=== PATIENT | female | born 1995 | race African-American/Black ===

== ENCOUNTER 2016-06-17 17:37 | Emergency (ER) | payer MEDICAID, OTHER ==
[~2016-06-17] VITALS: Ht 162.6 cm; Wt 55.0 kg
[~2016-06-17 17:37] MED LIST: HYDR-3534 PO
[2016-06-17 17:40] VITALS: BP 123/69; PULSE 72; RESP 20; TEMP 98.1; O2SAT 100
[2016-06-17] MEDS ORDERED: CYCLOBENZAPRINE HCL 10 MG TAB PO ONE (19:15)
[2016-06-17] MEDS ORDERED: NAPROXEN 500 MG TAB PO ONE (19:15)
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
[2016-06-17] MEDS ORDERED: NAPR500 PO (19:24)
[2016-06-17] MEDS ORDERED: CYCL1TAB29 PO (19:24)
== END 2016-06-17 19:51 | disposition home or self-care (01) ==
LOC: NEPB 17:37
DX: S16.1XXA Strain of muscle, fascia and tendon at neck level, initial encounter (principal); S39.012A Strain of muscle, fascia and tendon of lower back, initial encounter; G44.309 Post-traumatic headache, unspecified, not intractable; Z87.39 Personal history of other diseases of the musculoskeletal system and connective tissue; V89.2XXA Person injured in unspecified motor-vehicle accident, traffic, initial encounter
CPT/HCPCS: 99283

== ENCOUNTER 2017-01-10 10:41 | Emergency (ER) | payer MEDICAID, OTHER ==
[~2017-01-10] VITALS: Ht 162.6 cm; Wt 50.0 kg
[~2017-01-10 10:41] MED LIST changes: +CYCL1TAB29 PO; -HYDR-3534 PO; +NAPR500 PO
[2017-01-10 10:43] VITALS: BP 146/86; PULSE 91; RESP 26; TEMP 97.9; O2SAT 98
[2017-01-10] MEDS ORDERED: SODIUM CHLOR 0.9% 1000 ML INJ 1,000 ML IV ONE ×2 (12:54→16:00)
[2017-01-10] MEDS ORDERED: SODIUM CHLOR 0.9% 1000 ML INJ 800 ML IV ONE (12:54)
[2017-01-10] MEDS ORDERED: SODIUM CHLORIDE 0.9% FLUSH 10 ML FLUSH IVF PRN (13:00)
[2017-01-10] MEDS ORDERED: ONDANSETRON HCL 4 MG/2 ML VIAL IVP ONE (13:00)
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
[2017-01-10 14:24] LABS: BASOPHIL % 0.2 % (0.0-2.0); EOSINOPHIL % 0.6 % (0.0-4.0); HEMATOCRIT 40.5 % (35.0-46.0); HEMO FLAGS DIFF FINAL; LYMPH % 41.6 % (9.0-44.0); LYMPHOCYTE # 2.4 TH/MM3 (1.0-4.8); MEAN CELL VOLUME 68.2 FL (80.0-100.0); MEAN CORPUSCULAR HEMOGLOBIN 21.4 PG (27.0-34.0); MEAN CORPUSCULAR HGB CONC 31.4 % (32.0-36.0); MONO % 6.2 % (0.0-8.0); NEUT % 51.4 % (16.0-70.0); PLATELET COUNT 262 TH/MM3 (150-450); RED BLOOD COUNT 5.93 MIL/MM3 (4.00-5.30); RED CELL DISTRIBUTION WIDTH 14.5 % (11.6-17.2); WHITE BLOOD COUNT 5.9 TH/MM3 (4.0-11.0)
[2017-01-10 15:50] VITALS: BP_SYST 115; BP_SYST 116; BP_SYST 118; BP_DIAS 53; BP_DIAS 65; BP_DIAS 68; RESP 18; RESP 19
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
[2017-01-10 17:52] LABS: BLOOD, URINE NEG (NEG); COMMENT (UR) CULT NOT INDICATED; CULTURE IF INDICATED CULT NOT INDICATED; GLUCOSE,URINE NEG (NEG); KETONE, URINE NEG (NEG); MUCUS URINE MANY /lpf (OCC); NITRITE,URINE NEG (NEG); PH, URINE 5.5 (5.0-8.5); SQUAMOUS EPITHELIAL CELL URINE 5 /hpf (0-5); URINE COLOR YELLOW (YELLW/STRAW)
[2017-01-10 18:34] LABS: ALT (GPT) 17 U/L (10-53); ANION GAP 8 MEQ/L (5-15); AST (GOT) 14 U/L (15-37); BICARBONATE 21.7 MEQ/L (21.0-32.0); BLOOD UREA NITROGEN 12 MG/DL (7-18); CHLORIDE 113 MEQ/L (98-107); GLOMERULAR FILTRATION RATE 129 ML/MIN (>89); POTASSIUM 3.7 MEQ/L (3.5-5.1); SODIUM (NA) 143 MEQ/L (136-145)
[2017-01-10 18:36] LABS: ALKALINE PHOSPHATASE 47 U/L (45-117); CREATINE KINASE 124 U/L (26-192)
[2017-01-10 18:53] LABS: CKMB LESS THAN 0.5 NG/ML (0.5-3.6)
[2017-01-10] MEDS ORDERED: IBUP-232 PO (19:11)
[2017-01-10] MEDS ORDERED: MAPA500T13 PO (19:11)
[2017-01-10] MEDS ORDERED: ACETAMINOPHEN 325 MG TAB PO ONE (19:15)
[2017-01-10] MEDS ORDERED: IBUPROFEN 600 MG TAB PO ONE (19:15)
[2017-01-10 19:39] VITALS: BP 140/88
== END 2017-01-10 19:58 | disposition home or self-care (01) ==
LOC: NEPC 10:41
DX: R55 Syncope and collapse (principal); X30.XXXA Exposure to excessive natural heat, initial encounter; R94.31 Abnormal electrocardiogram [ECG] [EKG]
CPT/HCPCS: 80053; 81001; 82550; 82552; 83735; 85025; 93005; 96361; 96374; 99284; J2405; J7030

== ENCOUNTER 2017-04-11 18:57 | Emergency (ER) | payer MEDICAID, OTHER ==
[~2017-04-11] VITALS: Ht 162.6 cm; Wt 53.1 kg
[~2017-04-11 18:57] MED LIST changes: +CYCL10TA PO; -CYCL1TAB29 PO; +IBUP-232 PO; +MAPA500T13 PO
[2017-04-11 19:05] VITALS: BP 132/71; PULSE 82; RESP 16; TEMP 98.9; O2SAT 100
[2017-04-11] MEDS ORDERED: SODIUM CHLORIDE 0.9% FLUSH 10 ML FLUSH IV FLUSH PRN (19:30)
[2017-04-11] MEDS ORDERED: FAMOTIDINE 20 MG/2 ML VIAL IV PUSH ONE (19:30)
[2017-04-11] MEDS ORDERED: ALUMINUM/MAGNESIUM/SIMETH 30 ML CUP PO ONE (19:30)
[2017-04-11] MEDS ORDERED: ATROPINE/SCOPOLAM/HYOSCYAM/PB ELIXIR 10 ML CUP PO ONE (19:30)
--- NOTE | 2017-04-11 19:30 | PD ---
HPI Chief Complaint: Abdominal Pain Time Seen by Provider: 19:16 Travel History International Travel<30 days: No Contact w/Intl Traveler<30days: No Traveled to known affect area: No History of Present Illness HPI 21-year-old female complains of abdominal pain. Patient states that the pain started 3 days ago. Patient states the pain is sharp pain burning pain localized around the epigastric upper abdomen. Patient denies any pain radiation. Patient denies nausea vomiting diarrhea. Patient denies dysuria or frequency. Patient denies any vaginal discharge or bleeding. Patient denies any fever chills. Patient states that the pain is not worse with eating. Patient denies any recent intake of NSAIDs. PFSH Past Medical History Autoimmune Disease: Yes (SICKLE CELL TRAITS) Diminished Hearing: No Musculoskeletal: Yes (Muscle spasms,back) Immunizations Current: Yes Influenza Vaccination: No ?: Unknown LMP: 03/01/17 : 0 Past Surgical History Surgical History: No Previous Surgery Social History Alcohol Use: Yes (Occ.) Tobacco Use: No Substance Use: No Allergies-Medications (Allergen,Severity, Reaction): Coded Allergies: No Known Allergies (Unverified Adverse Reaction, Unknown, 04/11/17) Reported Meds & Prescriptions Reported Meds & Active Scripts Active Carafate (Sucralfate) 1 Gram Tab 1 Gm PO QID On empty stomach Protonix (Pantoprazole Sodium) 40 Mg Tab 40 Mg PO DAILY Review of Systems General / Constitutional: No: Fever Eyes: No: Visual changes HENT: No: Headaches Cardiovascular: No: Chest Pain or Discomfort Respiratory: No: Shortness of Breath Gastrointestinal: Positive: Abdominal Pain Genitourinary: No: Dysuria Musculoskeletal: No: Pain Skin: No Rash Neurologic: No: Weakness Psychiatric: No: Depression Endocrine: No: Polydipsia Hematologic/Lymphatic: No: Easy Bruising Physical Exam Narrative GENERAL: Well-nourished, well-developed patient. SKIN: Focused skin assessment warm/dry. HEAD: Normocephalic. EYES: No scleral icterus. No injection or drainage. NECK: Supple, trachea midline. No JVD or lymphadenopathy. CARDIOVASCULAR: Regular rate and rhythm without murmurs, gallops, or rubs. RESPIRATORY: Breath sounds equal bilaterally. No accessory muscle use. GASTROINTESTINAL: Abdomen soft, nondistended. Patient has mild tenderness on palpation epigastric area. No rebound tenderness. No mass. MUSCULOSKELETAL: No cyanosis, or edema. BACK: Nontender without obvious deformity. No CVA tenderness. Neurologic exam normal. Data Data Last Documented VS Vital Signs Date Time Temp Pulse Resp B/P (MAP) Pulse Ox O2 Delivery O2 Flow Rate FiO2 04/11/17 19:35 16 100 Room Air 04/11/17 19:05 98.9 82 132/71 (91) Orders Orders Complete Blood Count With Diff (04/11/17 19:25) Comprehensive Metabolic Panel (04/11/17 19:25) Lipase (04/11/17 19:25) Urinalysis - C+S If Indicated (04/11/17 19:25) Iv Access Insert/Monitor (04/11/17 19:25) Ecg Monitoring (04/11/17:25) Oximetry (04/11/17 19:25) Sodium Chloride 0.9% Flush (Ns Flush) (04/11/17 19:30) Famotidine Inj (Pepcid Inj) (04/11/17 19:30) Ed Urine Pregnancytest Poc (04/11/17 19:25) Al-Mag Hy-Si 40-40-4 Mg/Ml Liq (Mag-Al P (04/11/17 19:30) Wksct-Ugtjja-Onahri-Pb Liq ( Liq (04/11/17 19:30) Urine Culture (04/11/17 20:42) Labs Laboratory Tests Test 04/11/17 19:40 04/11/17 20:42 White Blood Count 5.9 TH/MM3 Red Blood Count 5.49 MIL/MM3 Hemoglobin 11.7 GM/DL Hematocrit 37.8 % Mean Corpuscular Volume 68.9 FL Mean Corpuscular Hemoglobin 21.3 PG Mean Corpuscular Hemoglobin Concent 30.9 % Red Cell Distribution Width 14.1 % Platelet Count 270 TH/MM3 Mean Platelet Volume 8.9 FL Neutrophils (%) (Auto) 49.3 % Lymphocytes (%) (Auto) 38.1 % Monocytes (%) (Auto) 8.0 % Eosinophils (%) (Auto) 3.4 % Basophils (%) (Auto) 1.2 % Neutrophils # (Auto) 2.8 TH/MM3 Lymphocytes # (Auto) 2.3 TH/MM3 Monocytes # (Auto) 0.5 TH/MM3 Eosinophils # (Auto) 0.2 TH/MM3 Basophils # (Auto) 0.1 TH/MM3 CBC Comment AUTO DIFF Differential Comment AUTO DIFF CONFIRMED Platelet Estimate NORMAL Platelet Morphology Comment NORMAL Basophilic Stippling FAINT Ovalocytes 1+ Blood Urea Nitrogen 12 MG/DL Creatinine 0.67 MG/DL Random Glucose 90 MG/DL Total Protein 7.8 GM/DL Albumin 3.9 GM/DL Calcium Level 9.1 MG/DL Alkaline Phosphatase 45 U/L Aspartate Amino Transf (AST/SGOT) 13 U/L Alanine Aminotransferase (ALT/SGPT) 14 U/L Total Bilirubin 0.8 MG/DL Sodium Level 140 MEQ/L Potassium Level 3.8 MEQ/L Chloride Level 108 MEQ/L Carbon Dioxide Level 24.2 MEQ/L Anion Gap 8 MEQ/L Estimat Glomerular Filtration Rate 133 ML/MIN Lipase 270 U/L Urine Color YELLOW Urine Turbidity SLIGHT Urine pH 6.0 Urine Specific [place] 1.026 Urine Protein NEG mg/dL Urine Glucose (UA) NEG mg/dL Urine Ketones NEG mg/dL Urine Occult Blood NEG Urine Nitrite POS Urine Bilirubin NEG Urine Leukocyte Esterase SMALL Urine WBC 9-14 /hpf Urine Squamous Epithelial Cells 6-8 /hpf Urine Bacteria MANY /hpf Urine Mucus MOD /lpf Microscopic Urinalysis Comment CULTURE INDICATED MDM Medical Decision Making Medical Screen Exam Complete: Yes Emergency Medical Condition: Yes Interpretation(s) 2023 PM. CBC within normal limit. MCV 68.9. CMP within normal limit. Urine test positive. UA positive with WBC and bacteria. Differential Diagnosis Differential diagnosis including gastritis, PUD, pancreatitis, cholecystitis, colitis, UTI, pyelonephritis, nephrolithiasis. Narrative Course 21-year-old female with complains of epigastric abdominal pain. Pepcid 20 mg IV given. Maalox 30 cc by mouth given. 10 cc by mouth given. Diagnosis Primary Impression: Gastritis Qualified Codes: K29.00 - Acute gastritis without bleeding Additional Impressions: Qualified Codes: Z3A.01 - Less than 8 weeks gestation of UTI (urinary tract infection) Qualified Codes: N30.00 - Acute cystitis without hematuria Patient Instructions: General Instructions Additional Instructions: Take medications as directed. 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 Return if persistent problem or worse. Follow-up with OB/ MEDICAL AIDE physician. Take vitamins as directed. Med/Other Pt SpecificInfo: Prescription(s) given Scripts Nitrofurantoin Monohydrate Macrocrystals (Macrobid) 100 Mg Cap 100 MG PO BID for Infection, #14 CAP 0 Refills Prov: Bethel Sun MD 04/11/17 Sucralfate (Carafate) 1 Gram Tab 1 GM PO QID for Ulcer Prevention, #120 TAB 0 Refills On empty stomach Prov: Bethel Sun MD 04/11/17 Pantoprazole (Protonix) 40 Mg Tab 40 MG PO DAILY for Reflux, #30 TAB 0 Refills Prov: Bethel Sun MD 04/11/17 Disposition: 01 DISCHARGE HOME Condition: Stable Bethel Sun MD Apr 11, 2017 19:30
[2017-04-11 19:35] VITALS: RESP 16; O2SAT 100
[2017-04-11 19:40] VITALS: BP 122/73; PULSE 82; RESP 16; O2SAT 100
[2017-04-11 20:05] LABS: AUTOMATED NEUTROPHIL # 2.8 TH/MM3 (1.8-7.7); BASOPHIL # 0.1 TH/MM3 (0-0.2); BASOPHIL % 1.2 % (0.0-2.0); EOSINOPHIL # 0.2 TH/MM3 (0-0.4); EOSINOPHIL % 3.4 % (0.0-4.0); HEMATOCRIT 37.8 % (35.0-46.0); HEMOGLOBIN 11.7 GM/DL (11.6-15.3); LYMPH % 38.1 % (9.0-44.0); LYMPHOCYTE # 2.3 TH/MM3 (1.0-4.8); MEAN CELL VOLUME 68.9 FL (80.0-100.0); MEAN CORPUSCULAR HEMOGLOBIN 21.3 PG (27.0-34.0); MEAN CORPUSCULAR HGB CONC 30.9 % (32.0-36.0); MEAN PLATELET VOLUME 8.9 FL (7.0-11.0); MONOCYTE # 0.5 TH/MM3 (0-0.9); NEUT % 49.3 % (16.0-70.0); PLATELET COUNT 270 TH/MM3 (150-450); RED BLOOD COUNT 5.49 MIL/MM3 (4.00-5.30); RED CELL DISTRIBUTION WIDTH 14.1 % (11.6-17.2); WHITE BLOOD COUNT 5.9 TH/MM3 (4.0-11.0)
[2017-04-11 20:10] VITALS: BP 114/71; PULSE 88; RESP 16; O2SAT 100
[2017-04-11 20:11] LABS: CHLORIDE 108 MEQ/L (98-107); SODIUM (NA) 140 MEQ/L (136-145)
[2017-04-11 20:14] LABS: CALCIUM 9.1 MG/DL (8.5-10.1)
[2017-04-11 20:15] LABS: ALBUMIN 3.9 GM/DL (3.4-5.0); BICARBONATE 24.2 MEQ/L (21.0-32.0); BLOOD UREA NITROGEN 12 MG/DL (7-18); GLUCOSE,RANDOM 90 MG/DL (74-106); LIPASE 270 U/L (73-393)
[2017-04-11 20:17] LABS: ALT (GPT) 14 U/L (10-53); AST (GOT) 13 U/L (15-37)
[2017-04-11 20:18] LABS: CREATININE 0.67 MG/DL (0.50-1.00); GLOMERULAR FILTRATION RATE 133 ML/MIN (>89)
[2017-04-11 20:19] LABS: TOTAL BILIRUBIN ADULT 0.8 MG/DL (0.2-1.0); TOTAL PROTEIN 7.8 GM/DL (6.4-8.2)
[2017-04-11 20:20] LABS: ALKALINE PHOSPHATASE 45 U/L (45-117)
[2017-04-11] MEDS ORDERED: CARA1TAB6 PO (20:28)
[2017-04-11] MEDS ORDERED: DICY10 PO (20:28)
[2017-04-11] MEDS ORDERED: PROT40TA PO (20:28)
[2017-04-11 20:33] LABS: OVALOCYTES 1+ (NORMAL)
[2017-04-11 20:52] LABS: BILIRUBIN, URINE NEG (NEG); BLOOD, URINE NEG (NEG); GLUCOSE,URINE NEG (NEG); KETONE, URINE NEG (NEG); NITRITE,URINE POS (NEG); URINE LEUKOCYTE ESTERASE SMALL (NEG)
[2017-04-11 20:58] LABS: URINE COLOR YELLOW (YELLW/STRAW)
[2017-04-11 20:59] LABS: BACTERIA, URINE MANY /hpf; MUCUS URINE MOD /lpf (OCC)
[2017-04-11] MEDS ORDERED: MACR100C2 PO (21:11)
[2017-04-11 21:20] VITALS: BP 113/69; PULSE 88; RESP 16; O2SAT 100
[2017-04-23] MEDS ORDERED: OSEL75 PO (22:53)
[2017-04-23] MEDS ORDERED: ZOFR4TAB3 SL (22:53)
== END 2017-04-11 21:32 | disposition home or self-care (01) ==
LOC: PHED 18:57
DX: K29.00 Acute gastritis without bleeding (principal); O99.611 Diseases of the digestive system complicating pregnancy, first trimester; O23.11 Infections of bladder in pregnancy, first trimester; B96.89 Other specified bacterial agents as the cause of diseases classified elsewhere; Z3A.08 8 weeks gestation of pregnancy
CPT/HCPCS: 80053; 81001; 83690; 84703; 85025; 87077; 87086; 87186; 96374

== ENCOUNTER 2017-04-23 22:02 | Emergency (ER) | payer OTHER ==
[2017-04-23] MEDS: OSELTAMIVIR PHOSPHATE 75 MG CAP PO (23:24)
== END 2017-04-23 23:33 | disposition home or self-care (01) ==
LOC: PHED 22:02
DX: O99.511 Diseases of the respiratory system complicating pregnancy, first trimester (principal); J11.1 Influenza due to unidentified influenza virus with other respiratory manifestations; Z3A.01 Less than 8 weeks gestation of pregnancy
CPT/HCPCS: 99284